=== PATIENT | male | born 1935 | race Caucasian/White ===

== ENCOUNTER 2020-03-23 08:43 | Outpatient (RCR) | payer MEDICARE, OTHER, SELFPAY ==
[2016-01-20 14:04] VITALS: BMI 25.0
== END 2020-03-23 23:59 ==
LOC: IMMUN 08:43
PROVIDERS: PCP Family Medicine; Referring Provider Family Medicine; Visit Provider Family Medicine
DX: Z23 Encounter for immunization (principal)
CPT/HCPCS: 0011A; 0012A